=== PATIENT | male | born 1945 | race Caucasian/White ===

== ENCOUNTER → 2016-09-29 20:05 | Outpatient (CLI) | payer MEDICARE | END | disposition home or self-care (01) | LOC: D.LABREF 20:05 | DX: Z11.59 Encounter for screening for other viral diseases (principal) ==

== ENCOUNTER 2017-09-18 03:05 | Emergency (ER) | payer MEDICARE ==
[2017-09-18 03:30] LABS: BASOPHILS 0.1 % (0-2); EOSINOPHILS 0.4 % (0-7); HEMATOCRIT 43.3 % (42.0-54.0); HEMOGLOBIN 14.7 g/dL (13.5-17.5); IMMATURE GRANULOCYTES 0.2 % (0-5); LYMPHOCYTES 7.6 % (15-50); MCH 30.7 pg (26.0-34.0); MCHC 33.9 g/dL (31.0-37.0); MCV 90.4 fL (80.0-100.0); MEAN PLATELET VOLUME 11.6 fL (7.4-10.4); MONOCYTES 4.7 % (2-11); PLATELET COUNT 178 10x3/uL (130-400); RBC 4.79 10x6/uL (4.20-6.10); WBC 12.3 10x3/uL (4.8-10.8)
[2017-09-18 03:38] LABS: ALBUMIN 3.9 g/dL (3.4-5.0); ALKALINE PHOSPHATASE 101 U/L (46-116); ALT (SGPT) 38 U/L (10-68); BILIRUBIN - TOTAL 0.52 mg/dL (0.2-1.3); CALC OSMOLALITY 280 mosm/kg (275-300); CALCIUM 9.2 mg/dL (8.5-10.1); CARBON DIOXIDE 22.6 mmol/L (21.0-32.0); CHLORIDE - SERUM 105 mmol/L (98-107); CREATININE - SERUM 1.3 mg/dL (0.6-1.3); GLUCOSE 123 mg/dL (74-106); POTASSIUM - SERUM 3.5 mmol/L (3.5-5.1); PROTEIN - SERUM 7.3 g/dL (6.4-8.2); SODIUM 138 mmol/L (136-145); UREA NITROGEN 23 mg/dL (7-18); eGFR NON AFRICAN AMERICAN 58 mL/min (90-120)
[2017-09-18 03:50] LABS: AMYLASE - SERUM 56 U/L (25-115); CKMB 2.8 U/L (0.0-3.6); CREATINE KINASE 163 UL (21-232); LIPASE 152 U/L (73-393)
[2017-09-18 03:52] LABS: TROPONIN-I < 0.017 ng/mL (0.000-0.060)
== END 2017-09-18 04:55 | disposition home or self-care (01) ==
LOC: D.ER 03:05
PROVIDERS: Family Medicine
DX: R10.13 Epigastric pain (principal); K21.9 Gastro-esophageal reflux disease without esophagitis

== ENCOUNTER 2018-06-02 05:36 | Emergency (ER) | payer MEDICARE ==
[~2018-06-02] VITALS: Ht 180.3 cm; Wt 90.9 kg
[2018-06-02 05:40] VITALS: Ht 180.3 cm; Wt 90.9 kg
[2018-06-02] MEDS ORDERED: LIPITOR10 MG PO (05:42)
[2018-06-02] MEDS ORDERED: DEXILANT30 MG PO (05:42)
[2018-06-02] MEDS ORDERED: BAYER CHEWABLE81 MG PO (05:42)
[2018-06-02 06:11] LABS: BASOPHILS 0.1 % (0-2); EOSINOPHILS 0.1 % (0-7); HEMOGLOBIN 16.4 g/dL (13.5-17.5); IMMATURE GRANULOCYTES 0.2 % (0-5); MCH 31.5 pg (26.0-34.0); MCHC 34.9 g/dL (31.0-37.0); MCV 90.2 fL (80.0-100.0); MEAN PLATELET VOLUME 12.4 fL (7.4-10.4); MONOCYTES 4.5 % (2-11); NEUTROPHILS 90.1 % (40-80); PLATELET COUNT 192 10x3/uL (130-400); RBC 5.21 10x6/uL (4.20-6.10); WBC 16.3 10x3/uL (4.8-10.8)
[2018-06-02 06:35] LABS: ALBUMIN 4.2 g/dL (3.4-5.0); ALKALINE PHOSPHATASE 100 U/L (46-116); ALT (SGPT) 31 U/L (10-68); BILIRUBIN - TOTAL 0.85 mg/dL (0.2-1.3); CALC OSMOLALITY 284 mosm/kg (275-300); CALCIUM 9.3 mg/dL (8.5-10.1); CARBON DIOXIDE 21.1 mmol/L (21.0-32.0); CHLORIDE - SERUM 102 mmol/L (98-107); CREATININE - SERUM 1.3 mg/dL (0.6-1.3); GLUCOSE 151 mg/dL (74-106); POTASSIUM - SERUM 3.2 mmol/L (3.5-5.1); SODIUM 139 mmol/L (136-145); UREA NITROGEN 23 mg/dL (7-18); eGFR NON AFRICAN AMERICAN 58 mL/min (90-120)
[2018-06-02 06:46] LABS: AMYLASE - SERUM 53 U/L (25-115); CKMB 2.2 U/L (0.0-3.6); CREATINE KINASE 133 UL (21-232); LIPASE 135 U/L (73-393)
[2018-06-02 06:50] LABS: TROPONIN-I < 0.017 ng/mL (0.000-0.060)
[2018-06-02 07:14] LABS: APPEARANCE HAZY (CLEAR); BILIRUBIN NEGATIVE (NEGATIVE); COLOR STRAW (YELLOW); GLUCOSE 100 mg/dL (NEGATIVE); KETONE LARGE mg/dL (NEGATIVE); NITRITE NEGATIVE (NEGATIVE); PROTEIN NEGATIVE (NEGATIVE); SPECIFIC GRAVITY 1.015 (1.005-1.020); UROBILINOGEN NORMAL (NORMAL)
[2018-06-02] MEDS ORDERED: ZOFRAN ODT4 MG/UDTAB PO (09:44)
[2018-06-02 10:15] VITALS: BP 159/68
== END 2018-06-02 10:16 | disposition home or self-care (01) ==
LOC: D.ER 05:36
PROVIDERS: Family Medicine
DX: R11.2 Nausea with vomiting, unspecified (principal); R10.9 Unspecified abdominal pain